=== PATIENT | male | born 1980 | race Caucasian/White ===

== ENCOUNTER 2017-02-03 12:33 | Day surgery (SDC) | payer BC ==
[~2017-02-03 12:33] MED LIST: Lactated Ringers 1,000 ML IV SCH
--- NOTE | 2017-02-03 13:17 | PCM.PREANE ---
Preanesthetic Assessment - Anesthesia/Transfusion/Family Hx Anesthesia History: No Prior Anesthesia Family History of Anesthesia Reaction: No Transfusion History: No Prior Transfusion(s) - Review of Systems General: No Symptoms Pulmonary: No Symptoms Cardiovascular: No Symptoms Gastrointestinal: No Symptoms Neurological: No Symptoms - Physical Assessment NPO Status Date: 02/02/17 Height: 1.75 m Weight: 93.894 kg ASA Class: 1 Mental Status: Alert & Oriented x3 Airway Class: Mallampati = 1 Dentition: Reports: Normal Dentition Lungs: Clear to Auscultation, Normal Respiratory Effort Cardiovascular: Regular Rate, Regular Rhythm - Allergies Allergies/Adverse Reactions: Allergies Allergy/AdvReac Type Severity Reaction Status Date / Time No Known Allergies Allergy Verified 01/30/17 08:50 - Anesthesia Plan Pre-Op Medication Ordered: None - Acknowledgements Anesthesia Type Planned: MAC Pt an Appropriate Candidate for the Planned Anesthesia: Yes Alternatives and Risks of Anesthesia Discussed w Pt/Guardian: Yes Pt/Guardian Understands and Agrees with Anesthesia Plan: Yes PreAnesthesia Questionnaire HEENT History: Reports: None Cardiovascular History: Reports: None Respiratory History: Reports: None Gastrointestinal History: Reports: None Genitourinary History: Reports: None Musculoskeletal History: Reports: None Neurological History: Reports: Other (See Below) Other Neuro History: some motion sickness Psychiatric History: Reports: None Endocrine/Metabolic History: Reports: None Hematologic History: Reports: None Immunologic History: Reports: None Oncologic (Cancer) History: Reports: None Dermatologic History: Reports: Other (See Below) Other Dermatologic History: "atheletes foot" - Past Surgical History Head Surgeries/Procedures: Reports: None - SUBSTANCE USE Smoking Status *Q: Never Smoker Recreational Drug Use History: No - HOME MEDS Home Medications: Home Meds Fluocinolone Acetonide 1 dose TOP ASDIRECTED 01/30/17 [History] - CURRENT (IN HOUSE) MEDS Current Meds: Current Medications Lactated Ringer's (Ringers, Lactated) 1,000 mls @ 125 mls/hr IV ASDIRECTED [facility] Last Admin: 02/03/17 12:57 Dose: 125 mls/hr
--- NOTE | 2017-02-03 15:57 | PCM.OPNOTE ---
- General Post-Op/Procedure Note Date of Surgery/Procedure: 02/03/17 Operative Procedure(s): Colonoscopy w/ sigmoid biopsies Pre Op Diagnosis: Rectal bleeding. Change in bowel habits Post-Op Diagnosis: Acute sigmoid colitis Anesthesia Technique: MAC (ASA I) Primary Surgeon: Eric Lott Condition: Good Free Text/Narrative:: Dictation [id number] CPT CODE [id number]
[2017-02-03] MEDS ORDERED: Lactated Ringers 1,000 ML IV SCH (16:00)
--- NOTE | 2017-02-03 16:17 | PCM.POSTAN ---
POST ANESTHESIA ASSESSMENT - MENTAL STATUS Mental Status: Alert - RESPIRATORY Respiratory Status: Respiratory Rate WNL, Airway Patent, O2 Saturation Stable - CARDIOVASCULAR CV Status: Pulse Rate WNL, Blood Pressure Stable - GASTROINTESTINAL GI Status: No Symptoms - PAIN Pain Score: 0 - POST OP HYDRATION Hydration Status: Adequate & Stable
--- NOTE | 2017-02-03 16:31 | PCM48HPAN ---
Post Anesthesia Note - EVALUATION WITHIN 48HRS OF ANESTHETIC Vital Signs in Normal Range: Yes Patient Participated in Evaluation: Yes Respiratory Function Stable: Yes Airway Patent: Yes Cardiovascular Function Stable: Yes Hydration Status Stable: Yes Pain Control Satisfactory: Yes Nausea and Vomiting Control Satisfactory: Yes Mental Status Recovered: Yes - COMMENTS/OBSERVATIONS Free Text/Narrative:: No anesthesia problems or concerns at this time.
[2017-02-03 16:50] VITALS: BP 123/65
--- NOTE | 2017-02-03 22:36 | OR ---
SURGEON: Eric Lott M.D. DATE OF PROCEDURE: 02/03/2017 OPERATION PERFORMED: Colonoscopy with multiple sigmoid colon biopsies. ANESTHESIA: MAC. ASA CLASSIFICATION: I. PREOPERATIVE DIAGNOSIS: Change in bowel habits with rectal bleeding. POSTOPERATIVE DIAGNOSIS: Acute sigmoid colitis. DESCRIPTION OF PROCEDURE: The patient was taken to the endoscopy room and positioned on the endoscopy table in the left lateral decubitus position. Time-out was called for appropriate identification of the patient and procedure. Monitored anesthesia care was provided. The colonoscope was inserted into the rectum. Once the colonoscope was advanced into the sigmoid colon, one could see the acute inflammatory changes. I was able to traverse this area and advance the colonoscope all the way to the cecum where the colonoscope was retroflexed to visualize the ascending colon from below. The colonoscope was then straightened and slowly withdrawn. The cecum, ascending colon, hepatic flexure, transverse colon, splenic flexure, and descending colon showed no tumors, polyps, diverticula, or acute inflammatory changes. Once again as the colonoscope was withdrawn into the sigmoid colon, an acute inflammatory process is noted. Multiple biopsies were obtained. The area of inflammation extends from approximately 14 cm from the anal verge to 32 cm. I did not see any diverticular change. No tumors were identified. Once the colonoscope was withdrawn to the rectum, it was retroflexed to visualize the anal orifice from above. The colonoscope was then straightened, the rectum aspirated, and the colonoscope removed. No tumors, polyps, or hemorrhoids were noted in the retroflexed position. The patient tolerated the procedure well and was taken to recovery room in satisfactory condition. MENDY / DRAKE /[id number]
== END 2017-02-03 16:15 | disposition home or self-care (01) ==
LOC: MW.SDS 12:33
PROVIDERS: ATTEND Surgery
DX: K52.9 Noninfective gastroenteritis and colitis, unspecified (principal); Z79.899 Other long term (current) drug therapy
CPT/HCPCS: 45380; 88305; J7120